=== PATIENT | female | born 1960 | race Caucasian/White ===

== ENCOUNTER 2023-04-08 06:12 | Day surgery (SDC) | payer OTHER ==
[~2023-04-08] VITALS: Ht 165.1 cm; Wt 78.7 kg
[2023-04-08] MEDS ORDERED: LEVSOD25 (06:41)
[2023-04-08] MEDS ORDERED: ZOCOR20 MG (06:42)
[2023-04-08] MEDS ORDERED: HYDROCHLOROTH12.5 MG (06:42)
[2023-04-08] MEDS ORDERED: EPINEPhrine HCl 1 MG/ML 1ML Amp ONE (06:57)
[2023-04-08] MEDS ORDERED: Ropivacaine 0.5% HCl/Pf 5 MG/ML 20ML VIAL ONE (06:57)
[2023-04-08] MEDS ORDERED: Lactated Ringer's 1,000 ML IV ONE ×2 (06:59→07:10)
[2023-04-08] MEDS ORDERED: CeFAZolin Sodium 2,000 MG VIAL ONE (07:09)
[2023-04-08] MEDS ORDERED: Midazolam HCl 1MG / ML 2ML Vial ONE (07:09)
[2023-04-08] MEDS ORDERED: Acetaminophen 500 MG Tab ONE (07:09)
[2023-04-08] MEDS ORDERED: NS 50 ML IV ONE (07:10)
[2023-04-08] MEDS ORDERED: Dexmedetomidine HCL 200 MCG / 2 ML ONE (07:14)
[2023-04-08] MEDS ORDERED: propofoL 150 ML IV ONE (07:14)
[2023-04-08] MEDS ORDERED: propofoL 20 ML IV ONE (07:27)
[2023-04-08] MEDS ORDERED: FentaNYL Citrate 50 MCG/ML 2 ML Injection ONE ×2 (07:27→09:29)
[2023-04-08] MEDS ORDERED: Ondansetron HCl 2 MG / ML 2ML Vial ONE (07:34)
[2023-04-08] MEDS ORDERED: Dexamethasone Sod Phos 10 MG/ML 1ML VIAL ONE (07:34)
[2023-04-08] MEDS ORDERED: EPINEPhrine HCl 1 MG/ML 1ML Amp XX ONE (07:48)
--- NOTE | 2023-04-08 07:53 | NUR ---
04/08/23 0753 Opal Carballo HEAD ON PILLOW, ARMS SECURED ON PADDED ARM BAORDS, LEFT HIP BUMP.
[2023-04-08] MEDS ORDERED: Phenylephrine HCl 100 MCG/ML-NS 10MLSYR (1MG/10ML) ONE (07:56)
[2023-04-08] MEDS ORDERED: OxyCODONE 5 mg/Acetamin 325 mg TABLET ONE (09:29)
--- NOTE | 2023-04-08 09:58 | NUR ---
04/08/23 0958 BRANDON LEIVA RN DLB GAVE OXYCODONE THAT WAS PULLED ON PT IN STEP DOWN; GIVEN AT 0940 RN TCR WITNESSED & CHARTED W/ VITALS
[2023-04-08 10:07] VITALS: BP 115/66
== END 2023-04-08 10:14 | disposition home or self-care (01) ==
LOC: ORSCSDS 06:12
PROVIDERS: Podiatrist Foot & Ankle Surgery
PROC: 0SGJ04Z Fusion of Left Tarsal Joint with Internal Fixation Device, Open Approach (ICD-10-PCS; principal; 2023-04-08 07:30)
PROC: 0QSR04Z Reposition Left Toe Phalanx with Internal Fixation Device, Open Approach (ICD-10-PCS; principal; 2023-04-08 07:30)
DX: M21.612 Bunion of left foot (principal); I10 Essential (primary) hypertension; E78.5 Hyperlipidemia, unspecified; E03.9 Hypothyroidism, unspecified; Z79.899 Other long term (current) drug therapy
CPT/HCPCS: A9270; C1713; J0171; J0690; J1100; J2250; J2371; J2405; J2704; J2795; J3010; J7120

== ENCOUNTER 2023-11-11 06:25 | Day surgery (SDC) | payer OTHER ==
[~2023-11-11] VITALS: Ht 165.1 cm; Wt 80.0 kg
[~2023-11-11 06:25] MED LIST: HYDROCHLOROTH12.5 MG; LEVSOD25; Lactated Ringer's 1,000 ML IV ONE; ZOCOR20 MG
[2023-11-11] MEDS ORDERED: CeFAZolin Sodium 2,000 MG VIAL ONE (06:38)
[2023-11-11] MEDS ORDERED: NS 50 ML IV ONE (06:39)
[2023-11-11] MEDS ORDERED: EPINEPhrine HCl 1 MG / ML 30ML Vial ONE (06:56)
[2023-11-11] MEDS ORDERED: Bupivacaine 0.5% HCl 5 MG/ML 30MLVIAL ONE (06:57)
[2023-11-11] MEDS ORDERED: EUTHYROX50 MC1 PO (07:00)
[2023-11-11] MEDS ORDERED: FentaNYL Citrate 50 MCG/ML 2 ML Injection ONE ×2 (07:01→09:11)
[2023-11-11] MEDS ORDERED: propofoL 60 ML IV ONE (07:01)
[2023-11-11] MEDS ORDERED: AMLODIPINE BESYL5 MG PO (07:01)
[2023-11-11] MEDS ORDERED: VITAMIN D3 (07:03)
[2023-11-11] MEDS ORDERED: Dexamethasone Sod Phos 10 MG/ML 1ML VIAL ONE (07:05)
[2023-11-11] MEDS ORDERED: Glycopyrrolate 0.2 MG/ML 5ML VIAL ONE (07:05)
[2023-11-11] MEDS ORDERED: Ondansetron HCl 2 MG / ML 2ML Vial ONE (07:05)
[2023-11-11] MEDS ORDERED: Lactated Ringer's 1,000 ML IV ONE (07:10)
[2023-11-11] MEDS ORDERED: Bupivacaine 0.5% HCl 5 MG/ML 30MLVIAL INJ ONE (08:24)
[2023-11-11 09:19] VITALS: BP 110/74
--- NOTE | 2023-11-11 09:31 | NUR ---
11/11/23 0931 Kathleen Moya PT RECEIVED 25MCG OF FENTANYL. PAIN WAS RATED A 5/10. 0930: PT STATED HER HER PAIN IS NOW A 2/10. AND IS AT AN ACCEPTABLE LEVEL.
== END 2023-11-11 09:29 | disposition home or self-care (01) ==
LOC: ORSCSDS 06:25
PROVIDERS: Podiatrist Foot & Ankle Surgery
PROC: 0QSQ04Z Reposition Right Toe Phalanx with Internal Fixation Device, Open Approach (ICD-10-PCS; principal; 2023-11-11 07:30)
PROC: 0SGK04Z Fusion of Right Tarsometatarsal Joint with Internal Fixation Device, Open Approach (ICD-10-PCS; principal; 2023-11-11 07:30)
DX: M21.611 Bunion of right foot (principal); I10 Essential (primary) hypertension; E03.9 Hypothyroidism, unspecified; E78.5 Hyperlipidemia, unspecified; Z79.899 Other long term (current) drug therapy
CPT/HCPCS: C1713; J0171; J0690; J1100; J2405; J2704; J3010; J7120

== ENCOUNTER → 2024-11-12 | Outpatient (CLI) | payer OTHER ==
[~2024-11-12] MED LIST changes: +AMLODIPINE BESYL5 MG PO; +EUTHYROX50 MC1 PO; -Lactated Ringer's 1,000 ML IV ONE; +VITAMIN D3
== END ==
LOC: LAB 18:10 → LAB SHORT 18:10
PROVIDERS: Family Medicine
DX: Z12.4 Encounter for screening for malignant neoplasm of cervix (principal)
CPT/HCPCS: 87624; G0145